=== PATIENT | female | born 1950 | race Caucasian/White ===

== ENCOUNTER 2018-01-28 16:45 | Emergency (ER) | payer OTHER ==
[~2018-01-28] VITALS: Ht 177.8 cm; Wt 81.7 kg
[~2018-01-28 16:45] MED LIST: LEVFLO500 PO; Percocet 5-3251 EACH PO; QUET100; Zofran Odt8 MG SL
[2018-01-28 18:12] LABS: Source, Urine Clean Catch
[2018-01-28 18:16] LABS: Bilirubin, Urine Neg (Neg); Blood, Urine 3+ (Neg); Glucose Qualitative, Urine Neg (Neg); Ketones, Urine Neg (Neg); Leukocyte Esterase, Urine 3+ (Neg); Nitrite, Urine Neg (Neg); Protein, Urine 1+ (Neg); Urobilinogen, Urine 1+ (Normal)
[2018-01-28 18:25] LABS: Appearance, Urine Hazy (Clear); Color, Urine Yellow (P-Yellow)
[2018-01-28 18:27] LABS: White Blood Cells, Urine 25-50 /hpf (0-5)
[2018-01-28 18:28] LABS: Bacteria Mod /hpf; Squamous Epithelial Cells Mod /hpf (Few)
[2018-01-28] MEDS ORDERED: Macrodantin100 MG PO (18:40)
== END 2018-01-28 19:07 | disposition home or self-care (01) ==
LOC: ER 16:45
PROVIDERS: Emergency Medicine
DX: S37.23XA Laceration of bladder, initial encounter (principal); N81.10 Cystocele, unspecified; N39.0 Urinary tract infection, site not specified; Z79.899 Other long term (current) drug therapy; X58.XXXA Exposure to other specified factors, initial encounter
CPT/HCPCS: 81001; 87086; 99283

== ENCOUNTER 2020-07-03 16:24 | Emergency (ER) | payer OTHER ==
[~2020-07-03] VITALS: Ht 177.8 cm; Wt 81.7 kg
[~2020-07-03 16:24] MED LIST changes: +Macrodantin100 MG PO
[2020-07-03] MEDS ORDERED: BENZ100A PO (19:09)
== END 2020-07-03 19:23 | disposition home or self-care (01) ==
LOC: ER 16:24
DX: U07.1 COVID-19 (principal); R05 Cough; R09.81 Nasal congestion; Z79.899 Other long term (current) drug therapy; Z87.442 Personal history of urinary calculi
CPT/HCPCS: 99284

== ENCOUNTER 2023-12-20 13:15 | Emergency (ER) | payer OTHER ==
[~2023-12-20] VITALS: Ht 175.3 cm; Wt 87.1 kg
[~2023-12-20 13:15] MED LIST changes: +B COMPLEX FORM0.4 MG; +BENZ100A PO; +CALCIUM MAGNES1 EACH; +ESCI10; +VITAMIN D31000 UNI1
[2023-12-20] MEDS ORDERED: ESCI10 PO (14:22)
[2023-12-20 14:41] LABS: BASOPHILS ABSOLUTE AUTO 0.08 K/mm3 (0.00-0.23); BASOPHILS PERCENT AUTO 1 % (0-2); EOSINOPHILS ABSOLUTE AUTO 0.16 K/mm3 (0.00-0.68); EOSINOPHILS PERCENT AUTO 2 % (0-6); Hematocrit 42.9 % (33.0-51.0); Hemoglobin 14.6 g/dL (11.5-16.0); IMMATURE GRAN ABSOLUTE AUTO 0.04 K/mm3 (0.00-0.10); IMMATURE GRAN PERCENT AUTO 1 % (0-1); LYMPHOCYTES ABSOLUTE AUTO 1.22 K/mm3 (0.84-5.20); LYMPHOCYTES PERCENT AUTO 15 % (21-46); MONOCYTES ABSOLUTE AUTO 0.65 K/mm3 (0.16-1.47); MONOCYTES PERCENT AUTO 8 % (4-13); Mean Corpuscular HGB 31.1 pg (26.0-34.0); Mean Corpuscular Volume 91 fL (80-100); Mean Platelet Volume 10.3 fL (9.1-12.4); NEUTROPHILS ABSOLUTE AUTO 5.95 K/mm3 (1.96-9.15); NEUTROPHILS PERCENT AUTO 73 % (41-73); Platelet Count 265 K/mm3 (150-400); RDW Coefficient Variation 12.4 % (11.7-14.2); RDW Standard Deviation 41.7 fL (35.1-46.3)
[2023-12-20] MEDS ORDERED: LORazepam 2 MG/ML 1ML Injection IV ONE (14:50)
[2023-12-20 14:54] LABS: Prothrombin Time Results 10.7 Sec (9.7-11.5)
[2023-12-20 15:05] LABS: Albumin, Blood 3.8 g/dL (3.4-5.0); Bilirubin, Total 0.5 mg/dL (0.1-1.0); Bun/Creatinine Ratio 26.8 (12.0-20.0); Calcium, Blood 9.3 mg/dL (8.5-10.1); Creatinine, Blood 0.89 mg/dL (0.40-1.00); Globulin, Blood 3.9 g/dL (2.2-4.0); Potassium, Blood 3.9 mmol/L (3.5-5.5); Total Protein, Blood 7.7 g/dL (6.4-8.2)
[2023-12-20 18:55] VITALS: BP 148/64
== END 2023-12-20 18:56 | disposition home or self-care (01) ==
LOC: ER 13:15
PROVIDERS: Physician Assistant
DX: S06.34AA Traumatic hemorrhage of right cerebrum with loss of consciousness status unknown, initial encounter (principal); G47.30 Sleep apnea, unspecified; W18.30XA Fall on same level, unspecified, initial encounter; Z79.899 Other long term (current) drug therapy
CPT/HCPCS: 70450; 73130; 80053; 85025; 85610; 99284-25